=== PATIENT | male | born 1980 | race Caucasian/White ===

== ENCOUNTER 2017-08-31 04:18 | Emergency (ER) | payer OTHER ==
[2017-08-31 04:40] LABS: BASO # 0.1 x10^3/uL (0.0-0.2); BASO % 1 % (0-3); EOS % 0 % (0-3); HEMATOCRIT 50.4 % (39.0-53.0); HEMOGLOBIN 17.3 g/dL (13.0-17.5); LYMPH % 6 % (24-48); MEAN CORPUSCULAR HEMOGLOBIN 32 pg (25-35); MEAN CORPUSCULAR HGB CONC 34 g/dL (31-37); MEAN CORPUSCULAR VOLUME 92 fL (79-100); MONO # 1.1 x10^3/uL (0.0-1.1); MONO % 6 % (0-9); NEUT # 15.6 x10^3uL (1.8-7.7); NEUT % 88 % (31-73); PLATELET COUNT 261 x10^3/uL (140-400); RED BLOOD COUNT 5.47 x10^6/uL (4.30-5.70); RED CELL DISTRIBUTION WIDTH 14.8 % (11.5-14.5); WHITE BLOOD COUNT 17.8 x10^3/uL (4.0-11.0)
[2017-08-31] MEDS: IV NORMAL SALINE 1000ML BAG 1,000 ML IV ×4 (04:40→05:23)
[2017-08-31 04:42] LABS: ADD MAN DIFF? YES
[2017-08-31 04:46] LABS: ANION GAP 11 (6-14); BLOOD UREA NITROGEN 14 mg/dL (8-26); BUN/CREATININE RATIO 12 (6-20); CALCIUM 8.4 mg/dL (8.5-10.1); CARBON DIOXIDE 26 mmol/L (21-32); CHLORIDE 105 mmol/L (98-107); CREATININE 1.2 mg/dL (0.7-1.3); GFR 69.3; GLUCOSE 112 mg/dL (70-99); POTASSIUM 4.2 mmol/L (3.5-5.1); SODIUM 142 mmol/L (136-145)
[2017-08-31 04:51] LABS: ETHANOL 180 mg/dL (0-10)
[2017-08-31 04:52] LABS: ALBUMIN 3.6 g/dL (3.4-5.0); ALK PHOS 57 U/L (46-116); ALT (SGPT) 207 U/L (16-63); AST (SGOT) 173 U/L (15-37); TOTAL BILIRUBIN 0.3 mg/dL (0.2-1.0); TOTAL PROTEIN 7.1 g/dL (6.4-8.2)
[2017-08-31] MEDS: DIPHTH,PERTUSS(ACELL),TET TOX 0.5 ML DISP.SYRIN. VAX IM ×2 (05:00)
[2017-08-31] MEDS: IOHEXOL 300 MG/ML 100ML VIAL. IV ×2 (05:35)
[2017-08-31] MEDS: fentaNYL PF VIAL 100 MCG/2 ML VIAL IV ×4 (05:35→05:48)
[2017-08-31] MEDS ORDERED: CONTRAST GIVEN MC ×2 (06:00)
[2017-08-31] MEDS ORDERED: ONDANSETRON PF 4 MG/2 ML VIAL. ×2 (06:04)
[2017-08-31] MEDS: ONDANSETRON PF 4 MG/2 ML VIAL. IV ×2 (06:05)
[2017-08-31 10:33] LABS: % BANDS 4 % (0-9); % LYMPHS 5 % (24-48); % MONOS 10 % (0-10); % SEGS 81 % (35-66); PLT ESTIMATE ADEQUATE (ADEQUATE)
== END 2017-08-31 07:00 | disposition short-term general hospital (02) ==
LOC: ER 04:18
DX: S72.351A Displaced comminuted fracture of shaft of right femur, initial encounter for closed fracture (principal); S01.111A Laceration without foreign body of right eyelid and periocular area, initial encounter; S27.322A Contusion of lung, bilateral, initial encounter; S19.9XXA Unspecified injury of neck, initial encounter; V47.5XXA Car driver injured in collision with fixed or stationary object in traffic accident, initial encounter; Y93.I9 Activity, other involving external motion; Y92.410 Unspecified street and highway as the place of occurrence of the external cause; Y99.8 Other external cause status
CPT/HCPCS: 36415; 70450; 71045; 71260; 72125; 72170; 73552; 74177; 80053; 85007; 85025; 90471; 90715; 93005; 96360; 96361; 96374; 96375; 99285-25; G0480; J2405; J3010; J7030; Q9967